=== PATIENT | female | born 1955 | race Two or more races ===

== ENCOUNTER 2018-03-09 08:30 | Inpatient (IN) | payer OTHER ==
[~2018-03-09] VITALS: Ht 152.4 cm; Wt 68.5 kg
[2018-03-13 08:37] LABS: ALBUMIN 3.7 g/dL (3.4-5.0); ALKALINE PHOSPHATASE 77 U/L (46-116); ALT/SGPT 17 U/L (14-59); AST/SGOT 12 U/L (15-37); BILIRUBIN TOTAL 0.36 mg/dL (0.20-1.00); CALCIUM 9.1 mg/dL (8.5-10.1); CARBON DIOXIDE 30.9 mmol/L (21-32); CHLORIDE SERUM 107 mmol/L (98-107); CREATININE SERUM 0.8 mg/dL (0.6-1.0); GFR1 > 60 mL/min; GLUCOSE SERUM 144 mg/dL (74-106); POTASSIUM SERUM 4.7 mmol/L (3.5-5.1); SODIUM SERUM 145 mmol/L (136-145); TOTAL PROTEIN, SERUM 7.5 g/dL (6.4-8.2)
[2018-03-13 09:01] LABS: BASOPHIL % 0.8 % (0-2); PLATELET COUNT 299 x10^3mcL (130-400); RED CELL DISTRIBUTION WIDTH 12.9 % (11.5-14.5)
[2018-03-14] VITALS (13 sets, daily range): BP systolic 93–184; BP diastolic 52–88
[2018-03-15 05:13] VITALS: BP 164/64
[2018-03-15 07:50] LABS: BASOPHIL % 0.1 % (0-2); PLATELET COUNT 261 x10^3mcL (130-400); RED CELL DISTRIBUTION WIDTH 12.6 % (11.5-14.5)
[2018-03-15] MEDS ORDERED: LOSARTAN POTASS1 TA6 PO (08:20)
[2018-03-15] MEDS ORDERED: PANTOPRAZOLE SO40 M1 PO (08:20)
[2018-03-15] MEDS ORDERED: ACT15 PO (08:21)
[2018-03-15] MEDS ORDERED: SIMVASTATIN20 M1 PO (08:21)
[2018-03-15] MEDS ORDERED: METFORMIN HCL1000 MG PO (08:21)
[2018-03-15 09:01] VITALS: BP 168/65
[2018-03-15 13:40] VITALS: BP 144/51
[2018-03-15 16:03] VITALS: BP 144/51
== END 2018-03-15 16:40 | disposition home or self-care (01) | DRG 513 ==
LOC: MU 03-14 06:06
PROVIDERS: ADMIT Obstetrics & Gynecology
PROC: 0UQF7ZZ Repair Cul-de-sac, Via Natural or Artificial Opening (ICD-10-PCS; 2018-03-14)
PROC: 0JQC3ZZ Repair Pelvic Region Subcutaneous Tissue and Fascia, Percutaneous Approach (ICD-10-PCS; 2018-03-14)
PROC: 0JQC3ZZ Repair Pelvic Region Subcutaneous Tissue and Fascia, Percutaneous Approach (ICD-10-PCS; 2018-03-14)
PROC: 0UTC7ZZ Resection of Cervix, Via Natural or Artificial Opening (ICD-10-PCS; 2018-03-14)
PROC: 0UT97ZZ Resection of Uterus, Via Natural or Artificial Opening (ICD-10-PCS; principal; 2018-03-14 07:30)
DX: N81.10 Cystocele, unspecified (principal); E11.9 Type 2 diabetes mellitus without complications; I10 Essential (primary) hypertension; N81.6 Rectocele; G89.29 Other chronic pain; R10.2 Pelvic and perineal pain; N39.46 Mixed incontinence; Z79.899 Other long term (current) drug therapy
CPT/HCPCS: 82962; J0690; J1170; J1815; J3010; J7120